=== PATIENT | male | born 2000 | race Caucasian/White ===

== ENCOUNTER 2018-08-12 16:34 | Emergency (ER) | payer SELFPAY ==
[~2018-08-12] VITALS: Ht 170.2 cm; Wt 59.1 kg
[2018-08-12] MEDS ORDERED: ASPI81 PO (16:39)
[2018-08-12] MEDS ORDERED: HydrOXYzine PAMOATE 50 MG CAPSULE PO ONE (17:15)
[2018-08-12 18:14] LABS: AMPHET/METH SCREEN,URINE NEGATIVE (NEGATIVE); BARBITURATE SCREEN, URINE NEGATIVE (NEGATIVE); BENZODIAZEPINES SCREEN,URINE NEGATIVE (NEGATIVE); CANNABINOID SCREEN,URINE POSITIVE (NEGATIVE); COCAINE SCREEN,URINE NEGATIVE (NEGATIVE); METHADONE SCREEN, URINE NEGATIVE (NEGATIVE); OPIATE SCREEN,URINE NEGATIVE (NEGATIVE); PHENCYCLIDINE SCREEN,URINE NEGATIVE (NEGATIVE)
[2018-08-12 19:00] VITALS: BP 127/77
== END 2018-08-12 19:24 | disposition home or self-care (01) ==
LOC: EMS 16:35
DX: R07.9 Chest pain, unspecified (principal); F41.9 Anxiety disorder, unspecified; Z79.899 Other long term (current) drug therapy
CPT/HCPCS: 93005